=== PATIENT | female | born 1980 | race Caucasian/White ===

== ENCOUNTER 2020-09-23 18:06 | Emergency (ER) | payer OTHER, SELFPAY ==
[2020-09-23 18:16] VITALS: BP 139/86; PULSE 82; RESP 18; TEMP 37.1; O2SAT 100
--- NOTE | 2020-09-23 18:17 | ED.GENADULT ---
HPI - General Adult General Chief complaint: Upper Respiratory Infection Stated complaint: sore throat Time Seen by Provider: 09/23/20 18:18 Source: patient and RN notes reviewed Mode of arrival: ambulatory Limitations: no limitations History of Present Illness HPI narrative: 40-year-old female presents with complaints of sore throat, upper respiratory infection symptoms, and headache (not the worst of her life) for the past 2 days. Susie reports increasing URI symptoms today, body aches, and PND. ES Tylenol and Tylenol and sinus without relief. Ill exposures. No high fevers, drooling, neck or throat swelling. Pain is bilateral. Hurts to swallow. Exacerbation factors consist of eating and drinking. No rhinorrhea. Nasal congestion. No voice change. No nausea, vomiting, or abdominal pain. Tolerating liquids well. Denies chills, dyspnea, difficulty swallowing, jaw pain, dental pain, facial pain, foreign body sensation, and rash. LMP 22 days ago. Remains active. The patient reports she has not been diagnosed with COVID-19. The patient reports she received 2 Moderna COVID-19 vaccines, second vaccine in May 2020. The patient reports she is not waiting for the results of a COVID-19 lab test. The patient reports she does not have weakness, fatigue, or myalgia. The patient reports she does not have a worsening cough. The patient reports she does not have any loss of taste or smell and diarrhea. Denies recent traveling. Denies concerns for COVID-19 or exposures. At this time, the patient is not suspected of having COVID-19. Some parts of this dictation were generated by voice recognition software and may contain typographical and/or grammatical inaccuracies. Related Data Allergies Allergy/AdvReac Type Severity Reaction Status Date / Time sulfamethoxazole Allergy Intermediate HIVES Verified 09/23/20 18:26 trimethoprim Allergy Intermediate HIVES Verified 09/23/20 18:26 Review of Systems Review of Systems: CONSTITUTIONAL: Denies fever, chills, sweats. EYES: Denies visual changes, redness, discharge. ENT: Denies rhinorrhea, otalgia. Complains of sore throat, congestion, PND. CARDIOVASCULAR: Denies chest pain, palpitations, edema. RESPIRATORY: Denies dyspnea, wheezing. Complaints of cough. GASTROINTESTINAL: Denies abdominal pain, nausea, vomiting, diarrhea. GENITOURINARY: Denies dysuria, hematuria, abnormal discharge. SKIN: Denies rash or itching. MUSCULOSKELETAL: Denies acute back pain, joint pain, or myalgia. Complaints of body aches. NEUROLOGIC: Denies numbness or focal weakness. PSYCHIATRIC: Denies anxiety or depression. All systems reviewed & are unremarkable except as noted in HPI and below. [facility] Past Medical History Medical History (Updated 09/28/20 @ 05:06 by ABHILASH Ledezma) Borderline hypertension Mildly obese Situational anxiety Surgical History Surgical History (Updated 09/23/20 @ 18:46 by ABHILASH Ledezma) No significant past surgical history Family History Family History (Updated 09/23/20 @ 18:47 by ABHILASH Ledezma) Father Diabetes mellitus Hypertension Mother Alive and well Social History Social History (Updated 09/23/20 @ 18:48 by ABHILASH Ledezma) Smoking status: Never smoker Tobacco type: cigarettes Second hand tobacco smoke exposure: No Alcohol intake: current Drinks per week: 2 Substance use: never Substance use type: does not use Living arrangements: with family Occupation/Education: occupation Gender identity (if verbalized by the patient): Female Sexual Orientation (if Verbalized by the Patient): Straight or Heterosexual Spiritual care concerns: No Agree to blood products: Yes Comments At time of signature, agree with the nurse past medical, surgical, social, and family history. There is no relevant family history pertinent to the presenting complaint. Exam Narrative: GENERAL: This is a well-nourished, wel
== END 2020-09-23 19:04 | disposition home or self-care (01) ==
PROVIDERS: Emergency Provider Nurse Practitioner Family; PCP Family Medicine
DX: J02.9 Acute pharyngitis, unspecified (principal); J01.90 Acute sinusitis, unspecified; E66.8 Other obesity; Z68.30 Body mass index [BMI] 30.0-30.9, adult; R03.0 Elevated blood-pressure reading, without diagnosis of hypertension
CPT/HCPCS: 87081; 87880; 99213; G0463

== ENCOUNTER 2022-01-04 10:14 | Emergency (ER) | payer BC, SELFPAY ==
[2022-01-04 10:24] VITALS: BP 137/77; PULSE 92; RESP 18; TEMP 37.1; O2SAT 99
--- NOTE | 2022-01-04 10:30 | ED.URI ---
HPI - URI/Sore Throat General Chief Complaint: Upper Respiratory Infection Stated Complaint: swollen lymph nodes, sore throat, headache Time Seen by Provider: 01/04/22 10:30 Source: patient Mode of arrival: ambulatory Limitations: no limitations History of Present Illness HPI Narrative: 41-year-old female presents with complaint of sore throat, headache, body aches, fatigue started last night. Reports recent strep exposure. Reports history of strep multiple times. Denies nausea vomiting diarrhea. All systems reviewed and negative except as noted above. Related Data Allergies Allergy/AdvReac Type Severity Reaction Status Date / Time sulfamethoxazole AdvReac Intermediate HIVES Verified 01/04/22 10:21 trimethoprim AdvReac Intermediate HIVES Verified 01/04/22 10:21 Review of Systems Review of Systems: CONSTITUTIONAL: Denies fever, chills, or sweats. reports fatigue. EYES: Denies visual changes, redness, or discharge. ENT: Denies rhinorrhea, congestion . Reports sore throat. Denies otalgia. CARDIOVASCULAR: Denies chest pain, palpitations, or edema. RESPIRATORY: Denies cough or dyspnea. GASTROINTESTINAL: Denies abdominal pain, nausea, vomiting, or diarrhea. GENITOURINARY: Denies dysuria or hematuria. SKIN: Denies rash or itching. MUSCULOSKELETAL: Denies back pain, joint pain . Reports myalgia. NEUROLOGIC: Denies headache, numbness, or weakness. PSYCHIATRIC: Denies anxiety or depression. All other systems reviewed are negative, except as documented in HPI. [facility], [facility] Past Medical History Medical History Borderline hypertension Mildly obese Situational anxiety Surgical History Surgical History No significant past surgical history Family History Family History Father Diabetes mellitus Hypertension Mother Alive and well Social History Social History Smoking status: Never smoker Tobacco type: cigarettes Second hand tobacco smoke exposure: No Alcohol intake: current Drinks per week: 2 Substance use: never Substance use type: does not use Gender identity (if verbalized by the patient): Female Sexual Orientation (if Verbalized by the Patient): Straight or Heterosexual Spiritual care concerns: No Agree to blood products: Yes Comments At time of signature, agree with nursing past medical, surgical, social and family history. There is no relevant family history pertinent to the presenting complaint. Exam Narrative: GENERAL: This is a well-nourished, well-developed patient, in no apparent distress. HEAD: normocephalic, atraumatic. EYES: PERRL. Sclera clear/white. Vision is grossly intact. EARS: External ears normal, auditory canals clear and without drainage, TMs normal without perforation. Hearing grossly intact. NOSE: External nose normal with tonsils 2+ bilaterally with exudates. Erythematous. THROAT: Mucous membranes moist, posterior pharynx clear. NECK: Neck supple, non-tender without lymphadenopathy, masses or thyromegaly. CARDIOVASCULAR: Regular rate and rhythm without murmurs, gallops, or rubs. RESPIRATORY: Clear to auscultation. Breath sounds equal bilaterally. No wheezes, rales, or rhonchi. SKIN: warm, Dry, intact with no suspicious lesions or rash, good texture and turgor. NEURO: awake, alert, and oriented to person, place and time. There were no obvious focal neurologic abnormalities. EXTREMITIES: No joint tenderness, effusion, or edema noted. Course Course Level of Care: Express Care Visit Vital Signs Vital signs: Vital Signs Temperature 37.1 C 01/04/22 10:24 Pulse Rate 92 01/04/22 10:24 Respiratory Rate 18 01/04/22 10:24 Blood Pressure 137/77 01/04/22 10:24 Pulse Oximetry 99 01/04/22 10:24 Oxygen Delivery Room Air 12/14
== END 2022-01-04 10:50 | disposition home or self-care (01) ==
PROVIDERS: Emergency Provider Nurse Practitioner Family; PCP Family Medicine
DX: J02.0 Streptococcal pharyngitis (principal); E66.9 Obesity, unspecified; Z68.28 Body mass index [BMI] 28.0-28.9, adult
CPT/HCPCS: 87880; 99213; G0463

== ENCOUNTER 2022-08-21 11:05 | Emergency (ER) | payer OTHER, SELFPAY ==
--- NOTE | 2022-08-21 11:09 | ED.URI ---
HPI - URI/Sore Throat General Chief Complaint: Back Pain/Injury Stated Complaint: cough,diarrhea,lower back pain Time Seen by Provider: 08/21/22 11:08 Source: patient Mode of arrival: ambulatory Limitations: no limitations History of Present Illness HPI Narrative: Patient is a 42-year-old female that presents with cough, congestion starting on the . Patient states low back pain started on Sunday. Then on Sunday she had nausea and vomiting that has since resolved. Patient also reports cough and congestion have improved. Patient concerned with persistent low back pain that is unresolved with ibuprofen or Tylenol. Patient states she had spots of blood in urine this morning and has been having for urinary frequency. Concern for UTI or kidney stone. Denies any fever, chill Related Data Home Medications Medication Instructions Recorded Confirmed levonorgestrel 21 mcg/24 hours (8 See Rx Instructions .Route .COMPLEX 01/04/22 08/21/22 yrs) 52 mg intrauterine device (Mirena) Allergies Allergy/AdvReac Type Severity Reaction Status Date / Time sulfamethoxazole AdvReac Intermediate HIVES Verified 08/21/22 11:18 trimethoprim AdvReac Intermediate HIVES Verified 08/21/22 11:18 Review of Systems Review of Systems: All systems reviewed & are unremarkable except as noted in HPI and below Constitutional: Constitutional: Denies chills, Denies fever(s), Denies headache(s), Denies malaise and Denies weakness Eyes: Eyes: Denies change in vision, Denies eye discharge and Denies irritation ENT: Denies otalgia, Denies headache(s), Denies nasal congestion, Denies nasal discharge, Denies sinus pain and Denies sore throat Cardiovascular: Cardiovascular: Denies chest pain, Denies edema, Denies palpitations and Denies dyspnea Respiratory: Respiratory: Denies cough and Denies dyspnea Gastrointestinal: Gastrointestinal: Denies abdominal pain, Denies diarrhea, Denies nausea and Denies vomiting Genitourinary: Genitourinary: Denies hematuria, Reports urinary frequency, Reports dysuria and Denies flank pain Musculoskeletal: Musculoskeletal: Denies back pain and Denies numbness Integumentary/Breasts: Skin/Breast: Denies pruritus and Denies rash Neurologic: Denies headache(s), Denies numbness and Denies weakness Psychiatric: Psychiatric: Reports no additional psychiatric complaints Endocrine: Endocrine: Denies palpitations PMFSH Past Medical History Medical History Borderline hypertension Mildly obese Situational anxiety Surgical History Surgical History No significant past surgical history Family History Family History Father Diabetes mellitus Hypertension Mother Alive and well Social History Social History Smoking status: Never smoker Tobacco type: cigarettes Second hand tobacco smoke exposure: No Alcohol intake: current Drinks per week: 2 Substance use: never Substance use type: does not use Living arrangements: with family Occupation/Education: occupation Gender identity (if verbalized by the patient): Female Sexual Orientation (if Verbalized by the Patient): Straight or Heterosexual Spiritual care concerns: No Agree to blood products: Yes Comments At time of signature, agree with nursing past medical, surgical, social and family history. There is no relevant family history pertinent to the presenting complaint. Exam Const: General: cooperative, healthy appearing, comfortable, no acute distress and well nourished Nutritional Appearance: well nourished Orientation/consciousness: patient oriented x3 HENMT: Head: normocephalic and atraumatic Ears: external ears normal Face/Nose/Sinus: Normal external nose present, Normal nares present and normal faci
[2022-08-21 11:25] VITALS: BP 140/92; PULSE 104; RESP 16; TEMP 36.4; O2SAT 100
== END 2022-08-21 11:56 | disposition home or self-care (01) ==
PROVIDERS: Emergency Provider Nurse Practitioner Family; PCP Family Medicine
DX: N39.0 Urinary tract infection, site not specified (principal); E66.9 Obesity, unspecified; Z68.28 Body mass index [BMI] 28.0-28.9, adult
CPT/HCPCS: 81003; 87086; 99213; G0463

== ENCOUNTER → 2023-02-09 16:02 | Outpatient (CLI) | payer OTHER, SELFPAY ==
--- NOTE | ~2023-02-09 | MM_ITS ---
EXAMINATION: MM screening micheal BI w asher HISTORY: Screening mammogram TECHNIQUE: Craniocaudal and mediolateral oblique 3-D tomosynthesis images were obtained and synthetic 2-D images were generated. CAD analysis was submitted and interpreted. COMPARISON: No prior mammogram is available for comparison at this institution. BREAST PARENCHYMAL COMPOSITION: There are scattered areas of fibroglandular density. FINDINGS: There is no evidence of suspicious mass, calcification, or architectural distortion to sugg est malignancy in either breast. IMPRESSION: 1. No mammographic evidence of malignancy. 2. Recommend routine screening mammography in one year. BI-RADS Category 1: Negative Reviewed, dictated and finalized at location A. [employer]
== END ==
PROVIDERS: PCP Obstetrics & Gynecology; Visit Provider Obstetrics & Gynecology
DX: Z12.31 Encounter for screening mammogram for malignant neoplasm of breast (principal)
CPT/HCPCS: 77063; 77067